=== PATIENT | male | born 1950 ===

== ENCOUNTER 2018-12-13 10:02 | Outpatient (CLI) | payer OTHER | END 2018-12-13 13:21 | disposition home or self-care (01) | LOC: SONOGRAMA 10:02 | DX: M19.011 Primary osteoarthritis, right shoulder (principal); M75.42 Impingement syndrome of left shoulder ==

== ENCOUNTER 2021-10-13 10:02 | Outpatient (CLI) | payer OTHER | END 2021-10-13 10:15 | disposition home or self-care (01) | LOC: TOM 10:02 | PROVIDERS: ATTEND Surgery | DX: R10.30 Lower abdominal pain, unspecified (principal) ==